=== PATIENT | female | born 1990 | race Two or more races ===

== ENCOUNTER 2018-11-18 11:40 | Inpatient (IN) | payer OTHER ==
[~2018-11-18] VITALS: Ht 157.5 cm; Wt 70.8 kg
[~2018-11-18 11:40] MED LIST: CLEOCIN HCL300 MG; SULFAMETHOXAZOL1 TA5 PO
[2018-11-18] MEDS ORDERED: PRENATAL FORMU1 EAC1 PO (13:47)
[2018-11-28] MEDS ORDERED: HYDROXYZINE PAM50 MG PO (06:46)
[2018-11-28] MEDS ORDERED: NIFEDIPINE20 MG PO (06:46)
== END 2018-11-28 07:28 | disposition home or self-care (01) | DRG 833 ==
LOC: OB/GYN 11:40 → LDR 11:40 → OB/GYN 18:31 → LDR 18:40 → OB/GYN 11-19 08:06
PROVIDERS: ADMIT Obstetrics & Gynecology
PROC: BY4FZZZ Ultrasonography of Third Trimester, Single Fetus (ICD-10-PCS; principal; 2018-11-18)
PROC: 4A1HXCZ Monitoring of Products of Conception, Cardiac Rate, External Approach (ICD-10-PCS; 2018-11-18)
DX: O47.03 False labor before 37 completed weeks of gestation, third trimester (principal); Z34.03 Encounter for supervision of normal first pregnancy, third trimester

== ENCOUNTER 2018-12-18 09:14 | Inpatient (IN) | payer OTHER ==
[~2018-12-18] VITALS: Ht 157.5 cm; Wt 72.6 kg
[~2018-12-18 09:14] MED LIST changes: +HYDROXYZINE PAM50 MG PO; +NIFEDIPINE20 MG PO; +PRENATAL FORMU1 EAC1 PO
[2018-12-18] MEDS ORDERED: PRENATAL TABLE1 EACH PO (10:18)
[2018-12-20] MEDS ORDERED: DOCUSATE SODIU100 MG PO (11:12)
[2018-12-20] MEDS ORDERED: IBUPROFEN800 MG PO (11:12)
[2018-12-20] MEDS ORDERED: PREPLUS CA-FE1 EACH PO (11:13)
== END 2018-12-20 12:51 | DRG 807 ==
LOC: LDR 09:14 → OB/GYN 16:34
PROVIDERS: ADMIT Obstetrics & Gynecology
PROC: 10E0XZZ Delivery of Products of Conception, External Approach (ICD-10-PCS; principal; 2018-12-18)
PROC: 0UQGXZZ Repair Vagina, External Approach (ICD-10-PCS; 2018-12-18)
PROC: 3E033VJ Introduction of Other Hormone into Peripheral Vein, Percutaneous Approach (ICD-10-PCS; 2018-12-18)
PROC: 4A1HXCZ Monitoring of Products of Conception, Cardiac Rate, External Approach (ICD-10-PCS; 2018-12-18)
DX: O71.4 Obstetric high vaginal laceration alone (principal); Z37.0 Single live birth; Z3A.38 38 weeks gestation of pregnancy